=== PATIENT | female | born 1935 | race Caucasian/White ===

== ENCOUNTER 2016-09-01 09:44 | Inpatient (IN) | payer MEDICAID, MEDICARE ==
[~2016-09-01] VITALS: Ht 162.6 cm; Wt 70.3 kg
[~2016-09-01 09:44] MED LIST: ASCO-386 PO; CALC-1017 PO; CHOL400T31 PO; LEVO250T2 PO; MULT-69 PO; SIMVASTATIN PO; ZOLOFT PO
[2016-09-01] MEDS ORDERED: MORPHINE SULFATE 4 MG/ML CPJ (NOT FOR IM USE) IV STA (10:20)
[2016-09-01] MEDS ORDERED: ONDANSETRON HCL 4MG/2ML VIAL IV STA (10:20)
[2016-09-01] MEDS ORDERED: FAMOTIDINE 20MG/2ML VIAL IV STA (10:20)
[2016-09-01] MEDS ORDERED: SODIUM CHLORIDE 0.9% 500 ML IV ONE (10:20)
[2016-09-01 10:54] LABS: BASOPHILS % 0.7 % (0.0-2.0); EOSINOPHILS % 0.6 % (0.0-5.0); HEMATOCRIT. 42.5 % (36.0-48.0); HEMOGLOBIN. 14.1 g/dL (12.0-16.0); LYMPHOCYTES % 8.2 % (20.0-50.0); MEAN CORPUSCULAR HEMOGLOBIN 30.6 pg (28.0-32.0); MEAN CORPUSCULAR HGB CONC 33.2 g/dL (31.0-37.0); MEAN CORPUSCULAR VOLUME 92.2 fL (81.0-99.0); MEAN PLATELET VOLUME 7.9 fl (7.4-10.4); MONOCYTES % 4.6 % (2.0-8.0); NEUTROPHILS % 85.9 % (40.0-76.0); PLATELET 167 x1000/uL (130-400); RED BLOOD CELL COUNT 4.61 mill/uL (4.2-5.4); RED CELL DISTRIBUTION WIDTH 14.9 % (11.6-14.6); WHITE BLOOD COUNT 11.4 x1000/uL (4.5-11.0)
[2016-09-01 10:59] LABS: PROTHROMBIN TIME 10.2 sec
[2016-09-01 11:06] LABS: ALANINE AMINOTRANSFERASE 26 IU/L (13-61); ALBUMIN 4.3 g/dL (3.4-5.0); ANION GAP 16; CALCIUM 9.3 mg/dL (8.5-10.1); CARBON DIOXIDE 24 mEq/L (21-32); CHLORIDE 105 mEq/L (98-107); ETHANOL BLOOD < 10 mg/dL; INDEX HEMOLYSI 3 (1-3); INDEX ICTERIC 1 (1-4); INDEX LIPEMIC 1 (1-3); LIPASE 378 IU/L (73-393); UREA NITROGEN BLOOD 40 mg/dL (7-21)
[2016-09-01 11:10] LABS: eGFR 36 mL/min (>60)
[2016-09-01 11:11] LABS: NT PRO B-TYPE NATRIURETIC PEP 837 pg/mL (5-125); TROPONIN I < 0.02 ng/mL (0.00-0.04)
[2016-09-01 11:13] LABS: LACTIC ACID 2.8 mmol/L (0.4-2.0)
[2016-09-01] MEDS ORDERED: HYDROCODONE/ACETAMINOPHEN 5/325MG TABLET PO PRN (19:45)
[2016-09-01] MEDS ORDERED: ONDANSETRON HCL 4MG/2ML VIAL IV PRN (19:45)
[2016-09-01] MEDS ORDERED: CLONIDINE 0.1MG TABLET PO PRN (19:45)
[2016-09-01] MEDS ORDERED: IPRATROPIUM/ALBUTEROL 0.5-3(2.5)MG/3ML NEB INH PRN (19:45)
[2016-09-01] MEDS ORDERED: METRONIDAZOLE 500MG/100ML PREMIX IV SCH (22:00)
[2016-09-01 22:40] VITALS: BP_SYST 116; BP_SYST 153; BP_DIAS 68; BP_DIAS 69
[2016-09-02] VITALS: BP 155/71
[2016-09-02] MEDS ORDERED: LEVOFLOXACIN 500MG PREMIX 100 ML IV NR (01:00)
[2016-09-02] MEDS: DEXT 5%/0.45% NACL KCL 10MEQ/L 1,000 ML IV SCH ×2 (01:50→16:05)
[2016-09-02] MEDS ORDERED: INFLUENZA VIRUS VACCINE 0.5ML SYR IM ONE (02:15)
[2016-09-02] MEDS ORDERED: METRONIDAZOLE 500 MG PREMIX 100 ML IV NR (03:00)
[2016-09-02 04:00] VITALS: BP 167/77
[2016-09-02 07:04] LABS: BASOPHILS % 0.5 % (0.0-2.0); EOSINOPHILS % 3.9 % (0.0-5.0); HEMATOCRIT. 36.2 % (36.0-48.0); LYMPHOCYTES % 17.9 % (20.0-50.0); MEAN CORPUSCULAR HEMOGLOBIN 30.3 pg (28.0-32.0); MEAN CORPUSCULAR HGB CONC 33.1 g/dL (31.0-37.0); MEAN CORPUSCULAR VOLUME 91.6 fL (81.0-99.0); MEAN PLATELET VOLUME 7.4 fl (7.4-10.4); MONOCYTES % 8.4 % (2.0-8.0); NEUTROPHILS % 69.3 % (40.0-76.0); PLATELET 130 x1000/uL (130-400); RED BLOOD CELL COUNT 3.95 mill/uL (4.2-5.4); RED CELL DISTRIBUTION WIDTH 14.6 % (11.6-14.6); WHITE BLOOD COUNT 5.9 x1000/uL (4.5-11.0)
[2016-09-02 07:33] LABS: ALANINE AMINOTRANSFERASE 22 IU/L (13-61); ALBUMIN 3.3 g/dL (3.4-5.0); ANION GAP 13; BILIRUBIN DIRECT < 0.1 mg/dL (0.0-0.2); CALCIUM 8.7 mg/dL (8.5-10.1); CARBON DIOXIDE 27 mEq/L (21-32); CHLORIDE 105 mEq/L (98-107); INDEX HEMOLYSI 1 (1-3); INDEX ICTERIC 1 (1-4); INDEX LIPEMIC 1 (1-3); MAGNESIUM 1.9 mg/dL (1.8-2.4); PHOSPHORUS 3.4 mg/dL (2.5-4.9); UREA NITROGEN BLOOD 35 mg/dL (7-21); eGFR 36 mL/min (>60)
[2016-09-02 08:00] VITALS: BP 168/80
[2016-09-02] MEDS: PANTOPRAZOLE SODIUM 40 MG/VIAL IV SCH (09:13)
[2016-09-02 12:00] VITALS: BP 149/82
[2016-09-02] MEDS: METRONIDAZOLE 500 MG PREMIX 100 ML IV SCH ×2 (13:46→23:13)
[2016-09-02 16:00] VITALS: BP 164/69
[2016-09-02 20:00] VITALS: BP 145/73
[2016-09-02] MEDS: CLOTRIMAZOLE/BETAMETHASONE 1/0.05% CREAM 15GM TOP SCH (22:04)
[2016-09-02] MEDS: LEVOFLOXACIN 250MG PREMIX 50 ML IV SCH (22:04)
[2016-09-03] VITALS: BP 138/70
[2016-09-03 04:00] VITALS: BP 160/79
[2016-09-03] MEDS: METRONIDAZOLE 500 MG PREMIX 100 ML IV SCH ×3 (05:17→22:00)
[2016-09-03] MEDS: DEXT 5%/0.45% NACL KCL 10MEQ/L 1,000 ML IV SCH (06:32)
[2016-09-03 07:57] VITALS: BP 176/96
[2016-09-03] MEDS: CLOTRIMAZOLE/BETAMETHASONE 1/0.05% CREAM 15GM TOP SCH ×2 (09:37→18:07)
[2016-09-03] MEDS: PANTOPRAZOLE SODIUM 40 MG/VIAL IV SCH (09:37)
[2016-09-03] MEDS ORDERED: TRAMADOL 50MG TABLET PO PRN (11:15)
[2016-09-03 12:00] VITALS: BP 166/70
[2016-09-03 16:37] VITALS: BP 159/70
[2016-09-03 20:00] VITALS: BP 153/68
[2016-09-03] MEDS: LEVOFLOXACIN 250MG PREMIX 50 ML IV SCH (21:00)
[2016-09-04] VITALS: BP 145/66
[2016-09-04 04:00] VITALS: BP 136/68
[2016-09-04] MEDS: METRONIDAZOLE 500 MG PREMIX 100 ML IV SCH ×2 (06:00→14:42)
[2016-09-04 06:38] LABS: CALCIUM 8.4 mg/dL (8.5-10.1); MAGNESIUM 1.9 mg/dL (1.8-2.4)
[2016-09-04 07:12] LABS: BASOPHILS % 0.9 % (0.0-2.0); EOSINOPHILS % 5.5 % (0.0-5.0); HEMATOCRIT. 36.4 % (36.0-48.0); HEMOGLOBIN. 12.2 g/dL (12.0-16.0); LYMPHOCYTES % 19.3 % (20.0-50.0); MEAN CORPUSCULAR HEMOGLOBIN 30.8 pg (28.0-32.0); MEAN CORPUSCULAR HGB CONC 33.5 g/dL (31.0-37.0); MEAN CORPUSCULAR VOLUME 91.9 fL (81.0-99.0); MEAN PLATELET VOLUME 7.5 fl (7.4-10.4); MONOCYTES % 10.5 % (2.0-8.0); NEUTROPHILS % 63.8 % (40.0-76.0); PLATELET 140 x1000/uL (130-400); RED BLOOD CELL COUNT 3.96 mill/uL (4.2-5.4); RED CELL DISTRIBUTION WIDTH 15.1 % (11.6-14.6); WHITE BLOOD COUNT 6.3 x1000/uL (4.5-11.0)
[2016-09-04 07:54] VITALS: BP 147/73
[2016-09-04] MEDS: DEXT 5%/0.45% NACL KCL 10MEQ/L 1,000 ML IV SCH ×2 (08:00→14:41)
[2016-09-04] MEDS: CLOTRIMAZOLE/BETAMETHASONE 1/0.05% CREAM 15GM TOP SCH ×2 (09:03→18:42)
[2016-09-04] MEDS: PANTOPRAZOLE SODIUM 40 MG/VIAL IV SCH (09:03)
[2016-09-04] MEDS ORDERED: HYDROCORTISONE 1% RECTAL CREAM 30GM PR SCH (12:00)
[2016-09-04 12:05] VITALS: BP 139/61
[2016-09-04 16:08] VITALS: BP 147/65
[2016-09-04 17:22] VITALS: BP 147/65
[2016-09-05] MEDS ORDERED: PANTOPRAZOLE 40MG DR TABLET PO SCH (07:10)
== END 2016-09-04 20:23 | disposition home or self-care (01) | DRG 392 ==
LOC: ER 09:45 → 8WST 12:48 → SUPCPDRO 17:28
PROVIDERS: ADMIT Family Medicine Adult Medicine; ATTEND Family Medicine Adult Medicine
DX: K52.9 Noninfective gastroenteritis and colitis, unspecified (principal); N17.9 Acute kidney failure, unspecified; E87.2 Acidosis; E78.00 Pure hypercholesterolemia, unspecified; E78.5 Hyperlipidemia, unspecified; I12.9 Hypertensive chronic kidney disease with stage 1 through stage 4 chronic kidney disease, or unspecified chronic kidney disease; N18.9 Chronic kidney disease, unspecified; D72.829 Elevated white blood cell count, unspecified; Z85.42 Personal history of malignant neoplasm of other parts of uterus; Z90.710 Acquired absence of both cervix and uterus; Z79.899 Other long term (current) drug therapy
CPT/HCPCS: 36415; 71010; 74176; 80048; 80053; 80076; 83605; 83690; 83735; 83880; 84100; 84484; 85025; 85610; 87015; 87045; 87427; 87449; 87493; 89055; 90686; 93005; 93970; 96361; 96374; 99285; A6261; C1893; C9113; G0482; J1956; J2270; J2405; J3490; J7040; J7050

== ENCOUNTER 2016-11-11 19:27 | Emergency (ER) | payer MEDICARE ==
[~2016-11-11] VITALS: Ht 154.9 cm; Wt 72.0 kg
[2016-11-11 20:31] VITALS: BP 136/57
[2016-11-11] MEDS ORDERED: CEPHALEXIN 500MG CAPSULE PO ONE (21:15)
[2016-11-11] MEDS ORDERED: SULFAMETHOXAZOLE/TRIMETHOPRIM 800/160MG TABLET PO ONE (21:15)
== END 2016-11-11 22:09 | disposition home or self-care (01) ==
LOC: ER 19:27
DX: N76.4 Abscess of vulva (principal); E11.9 Type 2 diabetes mellitus without complications; Z79.899 Other long term (current) drug therapy; I25.10 Atherosclerotic heart disease of native coronary artery without angina pectoris; I10 Essential (primary) hypertension
CPT/HCPCS: 99283

== ENCOUNTER 2018-09-28 11:27 | Inpatient (IN) | payer MEDICARE ==
[~2018-09-28] VITALS: Ht 162.6 cm; Wt 73.7 kg
[~2018-09-28 11:27] MED LIST changes: +SERT25TA74 PO
[2018-09-28 12:48] LABS: HEMATOCRIT. 42.9 % (36.0-48.0); HEMOGLOBIN. 14.4 g/dL (12.0-16.0); MEAN CORPUSCULAR HEMOGLOBIN 31.7 pg (28.0-32.0); MEAN CORPUSCULAR VOLUME 94.8 fL (81.0-99.0); MEAN PLATELET VOLUME 7.3 fl (7.4-10.4); PLATELET 171 x1000/uL (130-400); RED BLOOD CELL COUNT 4.53 mill/uL (4.2-5.4); RED CELL DISTRIBUTION WIDTH 14.7 % (11.6-14.6)
[2018-09-28 12:52] LABS: CHLORIDE 106 mEq/L (98-107)
[2018-09-28 12:55] LABS: PROTHROMBIN TIME 10.2 sec (9.1-11.1)
[2018-09-28 13:09] LABS: PLATELET ESTIMATE NORMAL
[2018-09-28] MEDS ORDERED: SODIUM CHLORIDE 0.9% 1,000 ML IV ONE (15:54)
[2018-09-28] MEDS ORDERED: PANTOPRAZOLE SODIUM 40 MG/VIAL IV ONE (16:00)
[2018-09-28] MEDS ORDERED: CLONIDINE 0.1MG TABLET PO ONE (18:00)
[2018-09-28] MEDS ORDERED: DOCUSATE SODIUM 100MG CAPSULE PO PRN (22:00)
[2018-09-28] MEDS ORDERED: IPRATROPIUM/ALBUTEROL 0.5-3(2.5)MG/3ML NEB INH PRN (22:00)
[2018-09-28] MEDS ORDERED: ONDANSETRON HCL 4MG/2ML INJ IV PRN (22:00)
[2018-09-28] MEDS ORDERED: DIPHENHYDRAMINE 50MG/ML VIAL IV PRN (22:00)
[2018-09-28] MEDS ORDERED: CLONIDINE 0.1MG TABLET PO PRN (22:00)
[2018-09-28] MEDS ORDERED: GUAIFENESIN 200MG/10ML SUGAR FREE UDC PO PRN (22:00)
[2018-09-28] MEDS ORDERED: ACETAMINOPHEN 325MG TABLET PO PRN (22:00)
[2018-09-28] MEDS ORDERED: HYDROCODONE/ACETAMINOPHEN 5/325MG TABLET PO PRN (22:00)
[2018-09-28] MEDS ORDERED: MAGNESIUM/ALUMINUM HYDROXIDE/SIMETHICONE 30ML UDC PO PRN (22:00)
[2018-09-28] MEDS ORDERED: LORAZEPAM 0.5MG TABLET PO PRN (22:00)
[2018-09-28 23:00] VITALS: BP_SYST 140; BP_DIAS 51; BP_DIAS 61
[2018-09-29] VITALS: BP 155/65
[2018-09-29 04:00] VITALS: BP 129/50
[2018-09-29 07:00] LABS: CHLORIDE 109 mEq/L (98-107)
[2018-09-29 07:01] LABS: BASOPHILS % 0.7 % (0.0-2.0); EOSINOPHILS % 3.4 % (0.0-5.0); HEMATOCRIT. 35.7 % (36.0-48.0); HEMOGLOBIN. 11.8 g/dL (12.0-16.0); LYMPHOCYTES % 17.2 % (20.0-50.0); MEAN CORPUSCULAR HEMOGLOBIN 31.3 pg (28.0-32.0); MEAN CORPUSCULAR VOLUME 94.9 fL (81.0-99.0); MEAN PLATELET VOLUME 7.8 fl (7.4-10.4); MONOCYTES % 7.9 % (2.0-8.0); NEUTROPHILS % 70.8 % (40.0-76.0); PLATELET 134 x1000/uL (130-400); RED BLOOD CELL COUNT 3.77 mill/uL (4.2-5.4); RED CELL DISTRIBUTION WIDTH 14.7 % (11.6-14.6)
[2018-09-29 07:27] LABS: LDL CHOLESTEROL 100 mg/dL (5-100)
[2018-09-29 07:29] LABS: HDL CHOLESTEROL 31 mg/dL (40-59); T4 FREE 0.92 ng/dL (0.76-1.46)
[2018-09-29 08:00] VITALS: BP 154/68
[2018-09-29 08:05] LABS: PHOSPHORUS 4.2 mg/dL (2.5-4.9)
[2018-09-29] MEDS: PANTOPRAZOLE SODIUM 40 MG/VIAL IV SCH (08:59)
[2018-09-29 12:00] VITALS: BP 156/66
[2018-09-29 16:00] VITALS: BP 127/61
[2018-09-29 17:24] LABS: CLARITY URINE CLEAR (CLEAR); COLOR URINE YELLOW (YELLOW); KETONES URINE NEGATIVE (NEGATIVE); LEUKOCYTE ESTERASE URINE NEGATIVE (NEGATIVE); NITRITE URINE NEGATIVE (NEGATIVE); OCCULT BLOOD URINE NEGATIVE (NEGATIVE); PROTEIN URINE NEGATIVE (NEGATIVE); SPECIFIC GRAVITY URINE 1.008 (1.005-1.030); UROBILINOGEN URINE 0.2 E.U./dL (0.2-1.0)
[2018-09-29] MEDS: DEXT 5%/0.45% NACL 1000ML 1,000 ML IV SCH ×2 (18:03→18:04)
[2018-09-29 20:00] VITALS: BP 127/47
[2018-09-30] VITALS: BP 163/71
[2018-09-30] MEDS: DEXT 5%/0.45% NACL 1000ML 1,000 ML IV SCH (00:52)
[2018-09-30 04:00] VITALS: BP 145/65
[2018-09-30 08:00] VITALS: BP 156/80
[2018-09-30] MEDS: PANTOPRAZOLE SODIUM 40 MG/VIAL IV SCH ×2 (09:07→09:37)
[2018-09-30 10:15] LABS: HEMATOCRIT 38.2 % (36.0-48.0); HEMOGLOBIN 12.7 g/dL (12.0-16.0)
[2018-09-30 10:27] LABS: BASOPHILS % 0.9 % (0.0-2.0); EOSINOPHILS % 5.9 % (0.0-5.0); HEMATOCRIT. 38.3 % (36.0-48.0); HEMOGLOBIN. 12.7 g/dL (12.0-16.0); LYMPHOCYTES % 16.6 % (20.0-50.0); MEAN CORPUSCULAR HEMOGLOBIN 31.9 pg (28.0-32.0); MEAN CORPUSCULAR VOLUME 96.4 fL (81.0-99.0); MEAN PLATELET VOLUME 7.7 fl (7.4-10.4); NEUTROPHILS % 69.6 % (40.0-76.0); PLATELET 143 x1000/uL (130-400); RED BLOOD CELL COUNT 3.98 mill/uL (4.2-5.4); RED CELL DISTRIBUTION WIDTH 14.6 % (11.6-14.6)
[2018-09-30 10:35] LABS: CHLORIDE 108 mEq/L (98-107)
[2018-09-30 12:00] VITALS: BP 113/45
[2018-09-30 16:00] VITALS: BP 142/57
[2018-09-30 16:45] VITALS: BP 144/57
== END 2018-09-30 18:51 | disposition home or self-care (01) | DRG 391 ==
LOC: ER 11:27 → 5WST 17:13 → EDBEDREQ 17:17 → EDBEDREQTM 17:17 → ENRESERV 22:08
PROVIDERS: ADMIT Family Medicine Adult Medicine; ATTEND Family Medicine Adult Medicine
DX: K52.9 Noninfective gastroenteritis and colitis, unspecified (principal); N17.0 Acute kidney failure with tubular necrosis; D64.9 Anemia, unspecified; E78.5 Hyperlipidemia, unspecified; N18.9 Chronic kidney disease, unspecified; I12.9 Hypertensive chronic kidney disease with stage 1 through stage 4 chronic kidney disease, or unspecified chronic kidney disease; F32.9 Major depressive disorder, single episode, unspecified; K64.8 Other hemorrhoids; Z85.42 Personal history of malignant neoplasm of other parts of uterus; Z90.710 Acquired absence of both cervix and uterus; Z79.899 Other long term (current) drug therapy
CPT/HCPCS: 36415; 71045; 80061; 83735; 84100; 84439; 84443; 84484; 85014; 85018; 86850; 86900; 93005; 93306; 93970; 96361; 96365; 96366; 99285; C9113; J7030

== ENCOUNTER 2019-03-30 13:59 | Inpatient (IN) | payer MEDICARE, OTHER ==
[~2019-03-30] VITALS: Ht 157.5 cm; Wt 72.6 kg
[2019-03-30] MEDS ORDERED: SODIUM CHLORIDE 0.9% 1,000 ML IV ONE (14:32)
[2019-03-30] MEDS ORDERED: KETOROLAC 15MG/ML VIAL IV ONE (14:45)
[2019-03-30 15:04] LABS: BASOPHILS % 0.6 % (0.0-2.0); EOSINOPHILS % 5.5 % (0.0-5.0); HEMATOCRIT. 38.2 % (36.0-48.0); HEMOGLOBIN. 12.9 g/dL (12.0-16.0); LYMPHOCYTES % 22.1 % (20.0-50.0); MEAN CORPUSCULAR HEMOGLOBIN 32.2 pg (28.0-32.0); MEAN CORPUSCULAR VOLUME 95.2 fL (81.0-99.0); MEAN PLATELET VOLUME 6.9 fl (7.4-10.4); MONOCYTES % 7.4 % (2.0-8.0); NEUTROPHILS % 64.4 % (40.0-76.0); PLATELET 164 x1000/uL (130-400); RED BLOOD CELL COUNT 4.01 mill/uL (4.2-5.4); RED CELL DISTRIBUTION WIDTH 14.4 % (11.6-14.6)
[2019-03-30 15:09] LABS: CHLORIDE 106 mEq/L (98-107)
[2019-03-30 15:12] LABS: PROTHROMBIN TIME 10.1 sec (9.6-11.0)
[2019-03-30 16:31] LABS: CLARITY URINE CLEAR (CLEAR); COLOR URINE DARK YELLOW (YELLOW); KETONES URINE NEGATIVE (NEGATIVE); LEUKOCYTE ESTERASE URINE 2+ (NEGATIVE); NITRITE URINE NEGATIVE (NEGATIVE); OCCULT BLOOD URINE NEGATIVE (NEGATIVE); PROTEIN URINE TRACE (NEGATIVE); SPECIFIC GRAVITY URINE 1.022 (1.005-1.030); UROBILINOGEN URINE 0.2 E.U./dL (0.2-1.0)
[2019-03-30] MEDS ORDERED: CEFTRIAXONE 1 G PREMIX 50 ML IV ONE (18:15)
[2019-03-30 23:00] VITALS: BP 187/84
[2019-03-30 23:01] VITALS: BP 187/84
[2019-03-30] MEDS ORDERED: ACETAMINOPHEN 325MG TABLET PO PRN (23:30)
[2019-03-31] VITALS: BP 140/64
[2019-03-31] MEDS: SODIUM CHLORIDE 0.9% 1,000 ML IV SCH (00:02)
[2019-03-31 04:00] VITALS: BP 182/71
[2019-03-31 06:27] LABS: BASOPHILS % 0.6 % (0.0-2.0); EOSINOPHILS % 7.7 % (0.0-5.0); HEMATOCRIT. 38.2 % (36.0-48.0); LYMPHOCYTES % 24.8 % (20.0-50.0); MEAN CORPUSCULAR HEMOGLOBIN 32.6 pg (28.0-32.0); MEAN CORPUSCULAR VOLUME 96.1 fL (81.0-99.0); MEAN PLATELET VOLUME 7.1 fl (7.4-10.4); MONOCYTES % 9.6 % (2.0-8.0); NEUTROPHILS % 57.3 % (40.0-76.0); PLATELET 135 x1000/uL (130-400); RED BLOOD CELL COUNT 3.98 mill/uL (4.2-5.4); RED CELL DISTRIBUTION WIDTH 14.4 % (11.6-14.6)
[2019-03-31 08:00] VITALS: BP 154/67
[2019-03-31] MEDS: PNEUMOCOCCAL 23-VAL P-SAC VAC 0.5 ML IM ONE ×2 (09:00→10:43)
[2019-03-31 09:19] LABS: CHLORIDE 107 mEq/L (98-107)
[2019-03-31 09:30] LABS: PHOSPHORUS 4.1 mg/dL (2.5-4.9)
[2019-03-31] MEDS: SERTRALINE HCL 25MG TABLET PO SCH ×2 (10:41→17:22)
[2019-03-31] MEDS ORDERED: DOCUSATE SODIUM 100MG CAPSULE PO PRN (11:30)
[2019-03-31] MEDS ORDERED: ONDANSETRON HCL 4MG/2ML INJ IV PRN (11:30)
[2019-03-31] MEDS ORDERED: CLONIDINE 0.1MG TABLET PO PRN (11:30)
[2019-03-31] MEDS ORDERED: MAGNESIUM/ALUMINUM HYDROXIDE/SIMETHICONE 30ML UDC PO PRN (11:30)
[2019-03-31 12:00] VITALS: BP 156/71
[2019-03-31] MEDS ORDERED: TRAMADOL 50MG TABLET PO NR (13:45)
[2019-03-31] MEDS ORDERED: CEFTRIAXONE 1 G PREMIX 50 ML IV SCH (14:00)
[2019-03-31 16:00] VITALS: BP 161/73
[2019-03-31 20:00] VITALS: BP 147/73
[2019-04-01 04:00] VITALS: BP 148/60
[2019-04-01 06:00] LABS: BASOPHILS % 0.9 % (0.0-2.0); EOSINOPHILS % 6.9 % (0.0-5.0); HEMATOCRIT. 36.7 % (36.0-48.0); HEMOGLOBIN. 12.5 g/dL (12.0-16.0); LYMPHOCYTES % 22.5 % (20.0-50.0); MEAN CORPUSCULAR HEMOGLOBIN 32.6 pg (28.0-32.0); MEAN PLATELET VOLUME 7.3 fl (7.4-10.4); MONOCYTES % 8.5 % (2.0-8.0); NEUTROPHILS % 61.2 % (40.0-76.0); PLATELET 157 x1000/uL (130-400); RED BLOOD CELL COUNT 3.82 mill/uL (4.2-5.4); RED CELL DISTRIBUTION WIDTH 14.5 % (11.6-14.6)
[2019-04-01 06:40] LABS: PHOSPHORUS 4.9 mg/dL (2.5-4.9)
[2019-04-01 08:00] VITALS: BP_SYST 123; BP_SYST 197; BP_DIAS 51; BP_DIAS 80
[2019-04-01] MEDS: SERTRALINE HCL 25MG TABLET PO SCH (08:50)
[2019-04-01] MEDS: SODIUM CHLORIDE 0.9% 1,000 ML IV SCH (10:22)
[2019-04-01 10:42] VITALS: BP 123/51
[2019-04-01 12:00] VITALS: BP 138/84
== END 2019-04-01 15:05 | disposition home health service (06) | DRG 554 ==
LOC: ER 13:59 → 5WST 18:12 → EDBEDREQ 18:14 → ENRESERV 20:51
PROVIDERS: ADMIT Family Medicine Adult Medicine; ATTEND Family Medicine Adult Medicine
DX: M19.011 Primary osteoarthritis, right shoulder (principal); N18.9 Chronic kidney disease, unspecified; I13.10 Hypertensive heart and chronic kidney disease without heart failure, with stage 1 through stage 4 chronic kidney disease, or unspecified chronic kidney disease; F32.9 Major depressive disorder, single episode, unspecified; E78.5 Hyperlipidemia, unspecified; R53.1 Weakness; R55 Syncope and collapse; R53.83 Other fatigue; I49.1 Atrial premature depolarization; Z90.710 Acquired absence of both cervix and uterus; Z85.42 Personal history of malignant neoplasm of other parts of uterus; Z79.899 Other long term (current) drug therapy
CPT/HCPCS: 36415; 71045; 73030; 80048; 81003; 83735; 84100; 84443; 90732; 93005; 93306; 93971; 96365; 97161; 97165; 99285; J0696; J1885; J7030

== ENCOUNTER 2019-11-15 11:24 | Emergency (ER) | payer MEDICARE ==
[~2019-11-15] VITALS: Ht 162.6 cm; Wt 53.0 kg
[~2019-11-15 11:24] MED LIST changes: -LEVO250T2 PO; -SIMVASTATIN PO; -ZOLOFT PO
[2019-11-15 15:14] VITALS: BP 166/75
== END 2019-11-15 15:17 | disposition home or self-care (01) ==
LOC: ER 11:24
DX: K62.5 Hemorrhage of anus and rectum (principal); K59.00 Constipation, unspecified; I10 Essential (primary) hypertension; Z86.59 Personal history of other mental and behavioral disorders
CPT/HCPCS: 99283

== ENCOUNTER 2020-01-19 16:50 | Inpatient (IN) | payer MEDICARE ==
[~2020-01-19] VITALS: Ht 152.6 cm; Wt 78.5 kg
[2020-01-19] MEDS ORDERED: SODIUM CHLORIDE 0.9% 1,000 ML IV ONE (18:21)
[2020-01-19] MEDS ORDERED: ONDANSETRON HCL 4MG/2ML INJ IV STA ×2 (18:21→20:31)
[2020-01-19 19:24] LABS: BASOPHILS % 0.6 % (0.0-2.0); EOSINOPHILS % 1.3 % (0.0-5.0); HEMATOCRIT. 41.7 % (36.0-48.0); HEMOGLOBIN. 14.3 g/dL (12.0-16.0); LYMPHOCYTES % 18.1 % (20.0-50.0); MEAN CORPUSCULAR HEMOGLOBIN 33.1 pg (28.0-32.0); MEAN CORPUSCULAR VOLUME 96.4 fL (81.0-99.0); MEAN PLATELET VOLUME 7.6 fl (7.4-10.4); MONOCYTES % 7.6 % (2.0-8.0); NEUTROPHILS % 72.4 % (40.0-76.0); PLATELET 154 x1000/uL (130-400); RED BLOOD CELL COUNT 4.33 mill/uL (4.2-5.4); RED CELL DISTRIBUTION WIDTH 14.4 % (11.6-14.6)
[2020-01-19 20:20] LABS: CLARITY URINE CLOUDY (CLEAR); COLOR URINE DARK YELLOW (YELLOW); KETONES URINE TRACE (NEGATIVE); LEUKOCYTE ESTERASE URINE 3+ (NEGATIVE); NITRITE URINE NEGATIVE (NEGATIVE); OCCULT BLOOD URINE NEGATIVE (NEGATIVE); PROTEIN URINE 1+ (NEGATIVE); SPECIFIC GRAVITY URINE 1.026 (1.005-1.030)
[2020-01-19] MEDS ORDERED: MORPHINE SULFATE 4 MG/ML CPJ (NOT FOR IM USE) IV STA (20:31)
[2020-01-19 20:34] LABS: CHLORIDE 106 mEq/L (98-107)
[2020-01-19 20:38] LABS: PARTIAL THROMBOPLASTIN TIME 28.8 sec (23.4-31.0); PROTHROMBIN TIME 10.7 sec (9.6-11.0)
[2020-01-19] MEDS ORDERED: CEFTRIAXONE 1 G PREMIX 50 ML IV ONE (20:45)
[2020-01-19] MEDS ORDERED: MAGNESIUM/ALUMINUM HYDROXIDE/SIMETHICONE 30ML UDC PO PRN (22:30)
[2020-01-19] MEDS ORDERED: CLONIDINE 0.1MG TABLET PO PRN (22:30)
[2020-01-19] MEDS ORDERED: DOCUSATE SODIUM 100MG CAPSULE PO PRN (22:30)
[2020-01-19] MEDS: ONDANSETRON HCL 4MG/2ML INJ IV PRN (23:00)
[2020-01-19] MEDS: ZOLPIDEM TARTRATE 5MG TABLET PO PRN (23:00)
[2020-01-19] MEDS: ACETAMINOPHEN 325MG TABLET PO PRN (23:00)
[2020-01-20] VITALS (8 sets, daily range): BP systolic 113–200; BP diastolic 48–97
[2020-01-20] MEDS: ONDANSETRON HCL 4MG/2ML INJ IV PRN (04:38)
[2020-01-20] MEDS ORDERED: ENALAPRIL 2.5MG/2ML VIAL 2ML IV ONE (05:15)
[2020-01-20] MEDS ORDERED: ENALAPRIL 1.25 MG in DEXTROSE 5% WATER 50 ML IV NR (05:30)
[2020-01-20 07:22] LABS: BASOPHILS % 0.3 % (0.0-2.0); HEMATOCRIT. 37.7 % (36.0-48.0); LYMPHOCYTES % 8.8 % (20.0-50.0); MEAN CORPUSCULAR HEMOGLOBIN 32.9 pg (28.0-32.0); MEAN CORPUSCULAR VOLUME 95.8 fL (81.0-99.0); MEAN PLATELET VOLUME 7.2 fl (7.4-10.4); MONOCYTES % 5.1 % (2.0-8.0); NEUTROPHILS % 85.8 % (40.0-76.0); PLATELET 133 x1000/uL (130-400); RED BLOOD CELL COUNT 3.94 mill/uL (4.2-5.4)
[2020-01-20] MEDS: ENOXAPARIN 30MG/0.3ML SYR SUBCUT SCH (08:45)
[2020-01-20] MEDS ORDERED: HYDRALAZINE HCL 50MG TABLET PO SCH (09:30)
[2020-01-20] MEDS ORDERED: AMLODIPINE 10MG TABLET PO SCH ×2 (09:30→09:45)
[2020-01-20] MEDS ORDERED: HYDRALAZINE 20MG/ML VIAL IV PRN (09:45)
[2020-01-20] MEDS ORDERED: CLONIDINE 0.1MG TABLET PO PRN (09:45)
[2020-01-20] MEDS ORDERED: BISACODYL 10MG SUPP PR SCH (13:15)
[2020-01-20] MEDS: HYDRALAZINE HCL 50MG TABLET PO SCH ×2 (14:35→21:04)
[2020-01-20] MEDS: ACETAMINOPHEN 325MG TABLET PO PRN (18:26)
[2020-01-20] MEDS: MORPHINE SULFATE 2 MG/ML CPJ (NOT FOR IM USE) IV PRN (19:57)
[2020-01-20] MEDS: AMLODIPINE 10MG TABLET PO SCH (20:04)
[2020-01-20] MEDS: ZOLPIDEM TARTRATE 5MG TABLET PO PRN (20:04)
[2020-01-20] MEDS ORDERED: CEFTRIAXONE 1 G PREMIX 50 ML IV SCH (21:00)
[2020-01-21] VITALS: BP 189/59
[2020-01-21] MEDS: MORPHINE SULFATE 2 MG/ML CPJ (NOT FOR IM USE) IV PRN (02:11)
[2020-01-21 04:00] VITALS: BP 114/56
[2020-01-21] MEDS: HYDRALAZINE HCL 50MG TABLET PO SCH ×3 (05:52→20:42)
[2020-01-21 07:39] LABS: CHLORIDE 106 mEq/L (98-107)
[2020-01-21 07:44] LABS: HEMATOCRIT. 39.1 % (36.0-48.0); HEMOGLOBIN. 13.2 g/dL (12.0-16.0); MEAN CORPUSCULAR HEMOGLOBIN 32.5 pg (28.0-32.0); MEAN CORPUSCULAR VOLUME 96.1 fL (81.0-99.0); MEAN PLATELET VOLUME 7.4 fl (7.4-10.4); PLATELET 166 x1000/uL (130-400); RED BLOOD CELL COUNT 4.07 mill/uL (4.2-5.4); RED CELL DISTRIBUTION WIDTH 14.7 % (11.6-14.6)
[2020-01-21 08:00] VITALS: BP 112/49
[2020-01-21 08:11] LABS: CREATINE KINASE 155 IU/L (26-192)
[2020-01-21 08:15] LABS: CREATINE KINASE MB FRACTION 1.8 ng/mL (0.5-3.6)
[2020-01-21] MEDS: AMLODIPINE 10MG TABLET PO SCH ×2 (09:00→20:42)
[2020-01-21] MEDS ORDERED: AMLODIPINE 10MG TABLET PO SCH (09:00)
[2020-01-21] MEDS: ENOXAPARIN 30MG/0.3ML SYR SUBCUT SCH (10:10)
[2020-01-21 12:00] VITALS: BP 107/49
[2020-01-21] MEDS: ACETAMINOPHEN 325MG TABLET PO PRN ×2 (13:43→20:50)
[2020-01-21 13:53] LABS: PLATELET ESTIMATE NORMAL
[2020-01-21] MEDS ORDERED: VANCOMYCIN 1 G PREMIX 200 ML IV SCH (14:30)
[2020-01-21 16:00] VITALS: BP 110/45
[2020-01-21] MEDS ORDERED: VANCOMYCIN 1250MG in DEXTROSE 5% WATER 250ML IV NR (16:00)
[2020-01-21] MEDS: PIPERACILLIN/TAZOBACTAM 2.25 G in DEXTROSE 5% WATER 50 ML IV SCH (19:00)
[2020-01-21 20:00] VITALS: BP 106/45
[2020-01-22] VITALS (56 sets, daily range): BP systolic 51–125; BP diastolic 31–91
[2020-01-22] MEDS: PIPERACILLIN/TAZOBACTAM 2.25 G in DEXTROSE 5% WATER 50 ML IV SCH ×3 (01:24→18:00)
[2020-01-22] MEDS: HYDRALAZINE HCL 50MG TABLET PO SCH ×3 (06:00→21:12)
[2020-01-22 06:51] LABS: HEMATOCRIT. 39.3 % (36.0-48.0); HEMOGLOBIN. 13.3 g/dL (12.0-16.0); MEAN CORPUSCULAR HEMOGLOBIN 33.1 pg (28.0-32.0); MEAN CORPUSCULAR VOLUME 97.5 fL (81.0-99.0); MEAN PLATELET VOLUME 7.9 fl (7.4-10.4); PLATELET 161 x1000/uL (130-400); RED BLOOD CELL COUNT 4.03 mill/uL (4.2-5.4); RED CELL DISTRIBUTION WIDTH 15.2 % (11.6-14.6)
[2020-01-22] MEDS: AMLODIPINE 10MG TABLET PO SCH ×2 (08:34→20:36)
[2020-01-22] MEDS: ENOXAPARIN 30MG/0.3ML SYR SUBCUT SCH (08:37)
[2020-01-22] MEDS: FUROSEMIDE 20MG TABLET PO SCH (12:15)
[2020-01-22] MEDS ORDERED: METOCLOPRAMIDE HCL 10MG TABLET PO NR ×2 (13:30→17:30)
[2020-01-22] MEDS ORDERED: NA PHOS,M-B/NA PHOS,DI-BA ENEMA 118ML PR PRN (13:30)
[2020-01-22 13:54] LABS: PLATELET ESTIMATE NORMAL
[2020-01-22] MEDS ORDERED: SORBITOL 70% SOLN 30ML PO NR ×2 (14:00→18:00)
[2020-01-22] MEDS ORDERED: DOPAMINE 800MG PREMIX (DOUBLE) 250 ML IV ONE (17:26)
[2020-01-22] MEDS: DOPAMINE 800MG/500ML PREMIX 500 ML IV PRN ×2 (17:30→18:48)
[2020-01-22 17:37] LABS: BG BASE EXCESS -11.3 mmol/L (-2.0-2.0); BG CARBOXYHEMOGLOBIN 0.2 % (0.5-1.5); BG DEOXYHEMOGLOBIN 10.5 % (0.0-5.0); BG FRACTION INSPIRED OXYGEN 100; BG HCO3 ACT 21.1 mmol/L (22.0-26.0); BG METHEMOGLOBIN 0.1 % (0.0-1.5); BG OXYGEN SATURATION 89.5 % (92.0-98.5); BG OXYHEMOGLOBIN 89.2 % (94.0-97.0); BG PCO2 83.8 mmHg (35.0-45.0); BG PH 7.019 (7.350-7.450); BG PO2 79.9 mmHg (75.0-100.0); BG SAMPLE SITE RIGHT RADIAL; BG TIDAL VOLUME(mL) 500 mL; BG TOTAL HEMOGLOBIN 13.5 g/dL (12.0-18.0); BG VENT MODE VENT - A/C; BG VENT RATE 16 set
[2020-01-22] MEDS ORDERED: DOPAMINE 400MG/250ML PREMIX 250 ML IV PRN (18:30)
[2020-01-22] MEDS ORDERED: PHENYLEPHRINE 40 MG in DEXT 5% WATER 246 ML IV PRN (18:30)
[2020-01-22 20:12] LABS: CHLORIDE 104 mEq/L (98-107)
[2020-01-22 20:21] LABS: CREATINE KINASE 504 IU/L (26-192); CREATINE KINASE MB FRACTION 12.6 ng/mL (0.5-3.6)
[2020-01-22] MEDS: NOREPINEPHRINE 32 MG in DEXT 5% WATER 468 ML IV PRN (20:22)
[2020-01-22 20:26] LABS: BG BASE EXCESS -13.4 mmol/L (-2.0-2.0); BG DEOXYHEMOGLOBIN 17.2 % (0.0-5.0); BG FRACTION INSPIRED OXYGEN 100; BG HCO3 ACT 14.1 mmol/L (22.0-26.0); BG METHEMOGLOBIN 0.4 % (0.0-1.5); BG OXYGEN SATURATION 82.7 % (92.0-98.5); BG OXYHEMOGLOBIN 82.4 % (94.0-97.0); BG PCO2 37.9 mmHg (35.0-45.0); BG PH 7.187 (7.350-7.450); BG SAMPLE SITE LEFT RADIAL; BG TIDAL VOLUME(mL) 500 mL; BG TOTAL HEMOGLOBIN 14.9 g/dL (12.0-18.0); BG VENT MODE VENT - A/C; BG VENT RATE 20 set
[2020-01-22] MEDS ORDERED: SODIUM BICARBONATE 8.4% 1 MEQ/ML 50ML SYR IV NR (21:00)
[2020-01-22 21:57] LABS: HEMATOCRIT. 46.8 % (36.0-48.0); HEMOGLOBIN. 15.2 g/dL (12.0-16.0); MEAN CORPUSCULAR VOLUME 101.5 fL (81.0-99.0); PLATELET 213 x1000/uL (130-400); RED BLOOD CELL COUNT 4.61 mill/uL (4.2-5.4); RED CELL DISTRIBUTION WIDTH 15.7 % (11.6-14.6)
[2020-01-22 22:33] LABS: NUCLEATED RED BLOOD CELLS 1 /100 WBC; PLATELET ESTIMATE NORMAL
[2020-01-22] MEDS: VASOPRESSIN 10 UNIT in SODIUM CHLORIDE 0.9% 99.5 ML IV PRN (22:48)
[2020-01-22] MEDS: SODIUM BICARBONATE 150 MEQ in DEXTROSE 5% WATER 1,000 ML IV SCH (22:49)
[2020-01-23] VITALS (92 sets, daily range): BP systolic 64–166; BP diastolic 23–88
[2020-01-23] MEDS: PHENYLEPHRINE 80 MG in DEXT 5% WATER 492 ML IV PRN ×3 (00:28→21:20)
[2020-01-23] MEDS: VASOPRESSIN 10 UNIT in SODIUM CHLORIDE 0.9% 99.5 ML IV PRN ×5 (02:01→22:41)
[2020-01-23] MEDS: PIPERACILLIN/TAZOBACTAM 2.25 G in DEXTROSE 5% WATER 50 ML IV SCH ×2 (02:02→11:16)
[2020-01-23 05:57] LABS: HEMATOCRIT. 36.4 % (36.0-48.0); HEMOGLOBIN. 11.9 g/dL (12.0-16.0); MEAN CORPUSCULAR HEMOGLOBIN 33.1 pg (28.0-32.0); MEAN CORPUSCULAR VOLUME 101.7 fL (81.0-99.0); MEAN PLATELET VOLUME 8.9 fl (7.4-10.4); PLATELET 120 x1000/uL (130-400); RED BLOOD CELL COUNT 3.58 mill/uL (4.2-5.4); RED CELL DISTRIBUTION WIDTH 16.1 % (11.6-14.6)
[2020-01-23] MEDS: HYDRALAZINE HCL 50MG TABLET PO SCH ×3 (05:58→20:13)
[2020-01-23] MEDS: ENOXAPARIN 30MG/0.3ML SYR SUBCUT SCH (08:27)
[2020-01-23] MEDS: AMLODIPINE 10MG TABLET PO SCH ×2 (08:27→20:11)
[2020-01-23] MEDS: FUROSEMIDE 20MG TABLET PO SCH (09:00)
[2020-01-23 09:30] LABS: BG BASE EXCESS -16.6 mmol/L (-2.0-2.0); BG CARBOXYHEMOGLOBIN 0.1 % (0.5-1.5); BG DEOXYHEMOGLOBIN 18.2 % (0.0-5.0); BG FRACTION INSPIRED OXYGEN 100; BG METHEMOGLOBIN 0.3 % (0.0-1.5); BG OXYGEN SATURATION 81.7 % (92.0-98.5); BG OXYHEMOGLOBIN 81.4 % (94.0-97.0); BG PCO2 31.8 mmHg (35.0-45.0); BG PH 7.155 (7.350-7.450); BG PO2 54.2 mmHg (75.0-100.0); BG SAMPLE SITE RIGHT RADIAL; BG TIDAL VOLUME(mL) 500 mL; BG TOTAL HEMOGLOBIN 12.7 g/dL (12.0-18.0); BG VENT MODE PRVC; BG VENT RATE 20 set
[2020-01-23] MEDS ORDERED: LIDOCAINE HCL 1% 20ML VIAL (Pyxis) INJ ONE (09:38)
[2020-01-23] MEDS ORDERED: SODIUM BICARBONATE 4% (2.4MEQ) 5ML VIAL IV ONE (09:38)
[2020-01-23 10:52] LABS: NUCLEATED RED BLOOD CELLS 1 /100 WBC; PLATELET ESTIMATE SLIGHTLY DECREASED
[2020-01-23] MEDS: SODIUM BICARBONATE 150 MEQ in DEXTROSE 5% WATER 1,000 ML IV SCH (13:20)
[2020-01-23] MEDS ORDERED: AMIODARONE HCL 50MG/ML 3ML VIAL IV ONE (13:30)
[2020-01-23] MEDS ORDERED: AMIODARONE HCL 150 MG in DEXT 5% WATER 97 ML IV SCH (13:30)
[2020-01-23] MEDS ORDERED: VANCOMYCIN 1 G PREMIX 200 ML IV NR (14:00)
[2020-01-23] MEDS: NOREPINEPHRINE 32 MG in DEXT 5% WATER 468 ML IV PRN (15:00)
[2020-01-23] MEDS ORDERED: MEROPENEM 500 MG in SODIUM CHLORIDE 0.9% 50 ML IV SCH (17:00)
[2020-01-23] MEDS ORDERED: SODIUM BICARBONATE 8.4% 1 MEQ/ML 50ML SYR IV ONE (19:43)
[2020-01-23] MEDS: EPINEPHRINE 1 MG in SODIUM CHLORIDE 0.9% 249 ML IV PRN ×2 (21:35→22:41)
[2020-01-23] MEDS ORDERED: EPINEPHRINE 4 MG in SODIUM CHLORIDE 0.9% 246 ML IV PRN (22:45)
[2020-01-23] MEDS ORDERED: SODIUM BICARBONATE 8.4% MEQ/ML 50ML VIAL IV ONE (23:00)
[2020-01-23] MEDS ORDERED: DEXTROSE 50% WATER 50ML VIAL IV ONE (23:00)
[2020-01-23] MEDS ORDERED: ATROPINE SULFATE 1MG/10ML SYR ONE (23:00)
[2020-01-24] VITALS: BP 57/41
[2020-01-24 00:15] VITALS: BP 56/32
[2020-01-24 00:39] VITALS: BP 52/39
== END 2020-01-24 03:00 | disposition expired | DRG 871 ==
LOC: ER 16:50 → 6EST 22:21 → ENRESERV 22:34 → 6WST 01-20 09:04 → CVICU 01-22 16:58
PROVIDERS: ADMIT Family Medicine Adult Medicine; ATTEND Family Medicine Adult Medicine
PROC: 5A1945Z Respiratory Ventilation, 24-96 Consecutive Hours (ICD-10-PCS; principal; 2020-01-22)
PROC: 0BH17EZ Insertion of Endotracheal Airway into Trachea, Via Natural or Artificial Opening (ICD-10-PCS; 2020-01-22)
PROC: 5A12012 Performance of Cardiac Output, Single, Manual (ICD-10-PCS; 2020-01-22)
PROC: 3E0A3GC Introduction of Other Therapeutic Substance into Bone Marrow, Percutaneous Approach (ICD-10-PCS; 2020-01-22)
PROC: 02HV33Z Insertion of Infusion Device into Superior Vena Cava, Percutaneous Approach (ICD-10-PCS; 2020-01-23)
PROC: B548ZZA Ultrasonography of Superior Vena Cava, Guidance (ICD-10-PCS; 2020-01-23)
PROC: 5A12012 Performance of Cardiac Output, Single, Manual (ICD-10-PCS; 2020-01-24)
DX: A41.9 Sepsis, unspecified organism (principal); N17.0 Acute kidney failure with tubular necrosis; I21.4 Non-ST elevation (NSTEMI) myocardial infarction; J96.01 Acute respiratory failure with hypoxia; R65.21 Severe sepsis with septic shock; N39.0 Urinary tract infection, site not specified; I50.30 Unspecified diastolic (congestive) heart failure; I13.0 Hypertensive heart and chronic kidney disease with heart failure and stage 1 through stage 4 chronic kidney disease, or unspecified chronic kidney disease; J98.11 Atelectasis; E87.2 Acidosis; K56.609 Unspecified intestinal obstruction, unspecified as to partial versus complete obstruction; I46.9 Cardiac arrest, cause unspecified; E66.9 Obesity, unspecified; I16.0 Hypertensive urgency; K64.8 Other hemorrhoids; N18.9 Chronic kidney disease, unspecified; R19.00 Intra-abdominal and pelvic swelling, mass and lump, unspecified site; D64.9 Anemia, unspecified; E87.5 Hyperkalemia; I48.91 Unspecified atrial fibrillation; K52.9 Noninfective gastroenteritis and colitis, unspecified; F32.9 Major depressive disorder, single episode, unspecified; F41.9 Anxiety disorder, unspecified; K59.09 Other constipation; R74.0 Nonspecific elevation of levels of transaminase and lactic acid dehydrogenase [LDH]; Z85.42 Personal history of malignant neoplasm of other parts of uterus; Z90.710 Acquired absence of both cervix and uterus; Z79.899 Other long term (current) drug therapy; Z68.33 Body mass index [BMI] 33.0-33.9, adult; Z71.89 Other specified counseling
CPT/HCPCS: 36415; 36600; 71045; 74018; 74176; 76937; 80048; 80053; 80202; 81003; 82375; 82550; 82553; 82805; 82962; 83605; 83735; 83880; 84145; 84443; 84484; 85025; 85379; 87070; 93005; 93306; 93970; 94002; 94003; 96365; 99285; C1725; C1769; J0360; J0461; J0696; J1265; J1650; J2185; J2270; J2370; J2405; J2543; J3370; J3490; J7030; J7050; J7060; J7070; J8597